=== PATIENT | male | born 1975 | race African-American/Black ===

== ENCOUNTER 2018-12-20 18:16 | Observation (INO) | payer SELFPAY ==
[2018-12-20] MEDS ORDERED: IPRATROPIUM BROM 0.5MG/2.5ML ONE ×3 (18:30→20:51)
[2018-12-20] MEDS ORDERED: ALBUTEROL 2.5 MG/3 ML NEB SOL ONE ×3 (18:30→20:51)
--- OUTSIDE RECORDS SUMMARY | 2018-12-20 18:31 | XMS REPORT | Continuity of Care Document ---
:1975 Author Organization Interface Problems Problem Status Onset Classification Date Comments Source Date Reported ASTHMA Active 01/25/20 [facility] EXACERBATION ON 14 Medical BIPAP Center ASTHMA Active 01/25/20 [facility] 14 Medical Center SOB Active 05/09/20 [facility] 11 Medical Center VATS - Video Active 05/10/20 Problem 04/02/[address] thorascopic Center surgery Asthma<sup>1</de [place] ro[place] Active Problem 04/02/2013 1airlleak [facility] p> in chest Medical tube Center Pain control Active Problem 04/02/2013 [facility] Pneumothorax Active Problem 04/02/2013 [facility] Asthma Resolved Problem 04/02/2013 [facility] ASTHMA NOS W Active [facility] () EXAC [facility] Medications Medication Details Route Status Patient Ordering Order Source Instructions Provider Date predniSONE 50 50 mg, 1 tab, PO Active Valadez 03/31[facility] Tiana mg oral PO, Daily, 4 2012 Medical tablet tab, Center Substitution Allowed, TAB albuterol 90 1 puff, INHALATION Active Rory 03/31[facility] Tiana mcg/inh INHALATION, 2012 Medical inhalation QID, PRN, 1 Center aerosol ea, 6, 6, wheezing, Substitution Allowed, Maintenance albuterol 4.98 mg, 6 mL, [facility] No Geovanni 03/31[facility] Tiana 0.083% Route: Robert ALEX 2012 Medical inhalation Drug form: Active Center solution SOLN, ONCE, Dosing Weight 67.273, kg, Priority: STAT, Start date: 03/31/13 6:52:00, Stop date: 03/31/13 6:52:00 albuterol 7.47 mg, NEB No Geovanni 03/31[facility] Tiana 0.083% Route: Robert ALEX 2012 Medical inhalation Drug form: Active Center solution SOLN, ONCE, Dosing Weight 67.273, kg, Priority: STAT, Start date: 03/31/13 6:24:00, Stop date: 03/31/13 6:24:00 albuterol Substitution Active 03/31[facility] Tiana 0.5% Allowed 2013 Medical inhalation Center solution predniSONE 60 mg, Route: PO No Galarza [facility] PO, Drug form: Longer 2012 Medical TAB, ONCE, Active Center Dosing Weight 67.273, kg, Priority: STAT, Start date: 03/31/13 5:34:00, Stop date: 03/31/13 5:34:00 DuoNeb 9 mL, Route: INHALATION No Galarza 03/31[facility] inhalation INHALATION, Longer 2012 Medical solution Drug Form: Active Center SOLN, Dosing Weight 67.273, kg, ONCE, STAT, Start date: 03/31/13 5:34:00, Stop date: 03/31/13 5:34:00 albuterol 90 1 puff, INHALATION Active [facility] mcg/inh INHALATION, 2010 Medical inhalation QID, PRN, 1 Center aerosol ea, wheezing, Substitution Allowed, Maintenance ipratropium 0.5 mg, 2.5 NEB No [facility] mL, Route: Longer 2010 Medical NEB, Drug Active Center form: SOLN, Q15Min, Priority: STAT, Start date: 05/09/11 13:29:00, Duration: 3 doses or times, Stop date: 05/09/11 13:59:00 albuterol 2.49 mg, 3 mL, NEB No [facility] 05/09[facility] 0.083% Route: NEB, Longer 2010 Medical inhalation Drug form: Active Center solution SOLN, Q15Min, Priority: STAT, Start date: 05/09/11 13:29:00, Duration: 3 doses or times, Stop date: 05/09/11 13:59:00 tuberculin 5 unit, 0.1 INTRADERM No Ponce [facility] purified ml, Route: Longer 2009 Medical protein INTRADERM, Active Center derivative 5 Drug form: tuberculin INJ, ONCE, units/0.1 mL Start date: intradermal 05/07/10 solution 18:30:00, Stop date: 05/07/10 18:30:00 Allergies, Adverse Reactions, Alerts Substance Category Reaction Severity Reaction Status Date Comments Source type Reported Immunizations Immunization Date Given Site Status Last Updated Comments Source tuberculin 05/08/2010 completed [facility] purified protein Medical derivative Center Results Order Results Value Reference Date Interpretation Comments Source Name Range Chest wo Chest wo EXAM: CT CHEST WITHOUT CONTRAST 01/29 [facility] contrast contrast /2013 - Medical CT CT This report was dictated by a Coal Chemist/Fellow. I have personally reviewed the images as Center well as the Resident's interpretation and agree with the findings. DATE: Jan 29, 2014 04:05:00 PM Read by: Jefe Cerna MD Resident: Jefe Cerna MD Dictated Date/time: 01/30/14 08:09 Electronically Signed by: Ramin Robb MD 01/31/14 08:18 FINAL REPORT CLINICAL INDICATION: Coughing COMPARISON: Chest one view 01/26/2014. TECHNIQUE: Volumetric noncontrast CT images of the chest with axial, coronal, and sagittal reconstructions. FINDINGS: MEDIASTINUM: Aorta and great vessels are unremarkable by noncontrast CT. Mild pericardial effusion. The main pulmonary arteries are within normal limits. No lymphadenopathy is identified. LUNGS/PLEURA: No evidence of tracheostenosis. Tracer secretions are present. Diffuse centrilobular and tree in bud opacities are seen predominantly in the bilateral lower lobes. There is mild dependent subsegmental atelectasis. In addition, a few nodules are seen in the right upper lobe measuring up to 4 mm (series 3, image 95 and 115). There is biapical scarring with evidence of prior VATS on the lef t. Trace bilateral pleural effusions are present. BONES/SOFT TISSUES: No acute bony abnormalities identified. There is unchanged S-shaped scoliosis of the thoracolumbar spine. Visualized thyroid is normal. Subcutaneous soft tissues are unremarkable. UPPER ABDOMEN: There is minimal amorphous hyperdensity of the bilateral renal papillary tips. The abdomen is otherwise unremarkable. IMPRESSION: 1. Diffuse centrilobular and tree in bud opacities in the bilateral lower lobes, most consistent with infection and/or aspiration. 2. Minimal amorphous hyperdensity of the bilateral renal papillary tips, which may represent early medullary nephrocalcinosis or stone formation. Chest Chest Chest one view, January 26, 2014 at 2:54 a.m. 01/26 - [facility] 1view 1 - [facility] Center HISTORY: 38-year-old man with abnormal chest sounds. Read by: Jen Montejo MD Dictated Date/time: 01/26/14 08:57 Electronically Signed by: Jen Montejo MD 01/26/14 09:47 FINAL REPORT FINDINGS: Comparison is made to January 24. The cardiomediastinal silhouette is stable. The lungs are clear bilaterally and well expanded. No pleural effusions are identified. There is a reverse S-shaped scoliosis of the thoracic spine. IMPRESSION: The lungs are clear. Chest Chest PORTABLE CHEST 2014-01-24 11:46:00 01/24 - [address] - [facility] Center COMPARISON: 05/09/2011 Read by: Lacho Bond MD Dictated Date/time: 01/24/14 12:44 Electronically Signed by: Lacho Bond 01/24/14 17:25 FINAL REPORT CLINICAL INDICATION: Abnormal chest sounds DISCUSSION: Stable appearance of the heart size and mediastinum. No organized consolidation, pleural effusion or pneumothorax. CONCLUSION: There has been no significant interval change in the radiographic appearance of the chest when compared to prior radiograph. Vital Signs Vital Sign Value Date Comments Source Diastolic (mm Hg) 83 03/31/2013 [facility] Systolic (mm Hg) 142 03/31/2013 [facility] Respitory Rate 15 03/31/2013 [facility] Diastolic (mm Hg) 85 03/31/2013 [facility] Systolic (mm Hg) 139 03/31/2013 [facility] Respitory Rate 14 03/31/2013 [facility] Respitory Rate 14 03/31/2013 [facility] Diastolic (mm Hg) 79 03/31/2013 [facility] Temperature Oral (F) 98.0 F 03/31/2013 [facility] Systolic (mm Hg) 146 03/31/2013 [facility] Heart Rate 109 03/31/2013 [facility] Temperature Oral (F) 98.3 F 03/31/2013 [facility] Height 175.26 cm 03/31/2013 [facility] Weight 67.273 03/31/2013 [facility] Respitory Rate 18.0 05/09/2011 [facility] Heart Rate 78.0 05/09/2011 [facility] Diastolic (mm Hg) 91.0 05/09/2011 [facility] Systolic (mm Hg) 144.0 05/09/2011 [facility] Temperature Oral (F) 97.0 F 05/09/2011 [facility] Respitory Rate 16.0 05/09/2011 [facility] Heart Rate 72.0 05/09/2011 [facility] Diastolic (mm Hg) 93.0 05/09/2011 [facility] Temperature Oral (F) 98.0 F 05/09/2011 [facility] Systolic (mm Hg) 154.0 05/09/2011 [facility] Respitory Rate 20.0 05/09/2011 [facility] Weight 77.273 05/09/2011 [facility] Diastolic (mm Hg) 100.0 05/09/2011 [facility] Systolic (mm Hg) 178.0 05/09/2011 [facility] Heart Rate 103.0 05/09/2011 [facility] Encounters Location Location Encounter Encounter Reason Attending ADM DC Status Source Details Type Number For Provider Date Date Visit [facility] Emergency [id number] DAPHNE RODRIGUEZ 05/09 05/09 Active [facility] /2010 [facility] Emergency [id number] ALTAGRACIA 03/31 03/31 Active [facility] ANNE /2012 [facility] Outpatient [id number] ASTHMA ROLF Cancel [facility] Procedures Procedure Code Date Perfomer Comments Source
--- OUTSIDE RECORDS SUMMARY | 2018-12-20 18:32 | XMS REPORT | CCD ---
:1975 Author Organization [facility] Care Team Providers Name Role Phone Simón Gutiérrez Consulting Provider Unavailable Arti Linares Consulting Provider [phone] Zamzam Sanchez Consulting Provider Jen Kim Consulting Provider Unavailable Santy Mcconnell Consulting Provider [employer], Login Consulting Provider Unavailable Alexy Skelton Consulting Provider Raquel Dias Consulting Provider Unavailable Nivia Dhillon Consulting Provider Unavailable Charito Thompson Consulting Provider Lenka Oakes Consulting Provider Unavailable Macey Davenport Consulting Provider Unavailable SYSTEM, SYSTEM Consulting Provider Unavailable Umu Barba Consulting Provider Unavailable Najma Ponce Consulting Provider Bety Wiggins Consulting Provider Unavailable Tu Tyler Consulting Provider [phone] Jose David Ojeda Consulting Provider Allergies, Adverse Reactions, Alerts Substance Reaction Status NKDA ?? Active Problem List Condition Effective Dates Status Asthma1 ?? Active Pain control ?? Active Pneumothorax ?? Active VATS - Video assisted thorascopic surgery 05/10/2010 Active 1airlleak in chest tube Medications Medication Instructions Start Date End Date Status tuberculin purified 5 unit, 0.1 ml, Route: 05/07/2010 05/07/2010 Completed protein derivative 5 INTRADERM, Drug form: INJ, tuberculin units/0.1 mL ONCE, Start date: 05/07/10 intradermal solution 18:30:00, Stop date: 05/07/10 18:30:00 albuterol 90 mcg/inh 1 puff, INHALATION, QID, 05/09/2011 ?? Ordered inhalation aerosol PRN, 1 ea, wheezing, Substitution Allowed, Maintenance ipratropium 0.5 mg, 2.5 mL, Route: [facility], 05/09/2011 05/09/2011 Completed Drug form: SOLN, Q15Min, Priority: STAT, Start date: 05/09/11 13:29:00, Duration: 3 doses or times, Stop date: 05/09/11 13:59:00 albuterol 0.083% 2.49 mg, 3 mL, Route: [facility], 05/09/2011 05/09/2011 Completed inhalation solution Drug form: SOLN, Q15Min, Priority: STAT, Start date: 05/09/11 13:29:00, Duration: 3 doses or times, Stop date: 05/09/11 13:59:00 Immunizations Vaccine Date Status tuberculin purified protein derivative 05/07/2010 Auth (Verified) Vital Signs Most recent to oldest 1 2 3 [Reference Range]: Temperature Oral 97.0 DegF 98.0 DegF ?? [96.4-99.1 DegF] (05/09/2011 15:26:00) ?? (05/09/2011 13:56:00) ?? Systolic Blood Pressure 144 mmHg 154 mmHg 178 mmHg [90-140 mmHg] *HI* *HI* *HI* (05/09/2011 15:26:00) ?? (05/09/2011 13:56:00) ?? (05/09/2011 13:17:00) ?? Diastolic Blood Pressure 91 mmHg 93 mmHg 100 mmHg [60-90 mmHg] *HI* *HI* *HI* (05/09/2011 15:26:00) ?? (05/09/2011 13:56:00) ?? (05/09/2011 13:17:00) ?? Respiratory Rate [14-20 18 BRMIN 16 BRMIN 20 BRMIN BRMIN] (05/09/2011 15:26:00) ?? (05/09/2011 13:56:00) ?? (05/09/2011 13:35: 00) ?? Peripheral Pulse Rate 78 bpm 72 bpm 103 bpm [60-100 bpm] (05/09/2011 15:26:00) ?? (05/09/2011 13:56:00) ?? *HI* (05/09/2011 13:17:00) ?? Weight 77.273 kg ? (05/09/2011 13:17:00) ??
--- OUTSIDE RECORDS SUMMARY | 2018-12-20 18:32 | XMS REPORT ---
:1975 [facility] [address] [place] [address] Care Team Providers Name Role Phone Unavailable Unavailable Unavailable Problems This patient has no known problems. Allergies, Adverse Reactions, Alerts This patient has no known allergies or adverse reactions. Medications This patient has no known medications.
--- OUTSIDE RECORDS SUMMARY | 2018-12-20 18:32 | XMS REPORT | CCD ---
:[address] [facility] Care Team Providers Name Role Phone Johnny Madden Consulting Provider Allergies, Adverse Reactions, Alerts Substance Reaction Status NKDA Active Problem List Condition Effective Dates Status Asthma1 Active Asthma Resolved Pain control Active Pneumothorax Active Pneumothorax Resolved VATS - Video assisted thorascopic surgery 05/10/2010 Active 1airlleak in chest tube Medications Medication Instructions Start Date End Date Status tuberculin purified 5 unit, 0.1 ml, Route: 05/07/2010 05/07/2010 Completed protein derivative 5 INTRADERM, Drug form: INJ, tuberculin units/0.1 mL ONCE, Start date: 05/07/10 intradermal solution 18:30:00, Stop date: 05/07/10 18:30:00 predniSONE 50 mg oral 50 mg, 1 tab, PO, Daily, 4 03/31/2013 04/04/2013 Ordered tablet tab, Substitution Allowed, TAB albuterol 90 mcg/inh 1 puff, INHALATION, QID, 03/31/2013 Ordered inhalation aerosol PRN, 1 ea, 6, 6, wheezing, Substitution Allowed, Maintenance albuterol 0.5% inhalation Substitution Allowed 03/31/2013 Ordered solution predniSONE 60 mg, Route: PO, Drug 03/31/2013 03/31/2013 Completed form: TAB, ONCE, Dosing Weight 67.273, kg, Priority: STAT, Start date: 03/31/13 5:34:00, Stop date: 03/31/13 5:34:00 DuoNeb inhalation solution 9 mL, Route: INHALATION, 03/31/2013 03/31/2013 Completed Drug Form: SOLN, Dosing Weight 67.273, kg, ONCE, STAT, Start date: 03/31/13 5:34:00, Stop date: 03/31/13 5:34:00 albuterol 0.083% 4.98 mg, 6 mL, Route: NEB, 03/31/2013 03/31/2013 Completed inhalation solution Drug form: SOLN, ONCE, Dosing Weight 67.273, kg, Priority: STAT, Start date: 03/31/13 6:52:00, Stop date: 03/31/13 6:52:00 albuterol 0.083% 7.47 mg, Route: NEB, Drug 03/31/2013 03/31/2013 Completed inhalation solution form: SOLN, ONCE, Dosing Weight 67.273, kg, Priority: STAT, Start date: 03/31/13 6:24:00, Stop date: 03/31/13 6:24:00 Immunizations Vaccine Date Status tuberculin purified protein derivative 05/07/2010 Auth (Verified) Vital Signs Most recent to oldest 1 2 3 [Reference Range]: Height 175.26 cm (03/31/2013 05:19:00) Temperature Oral 98.0 DegF 98.3 DegF [96.4-99.1 DegF] (03/31/2013 06:28:00) (03/31/2013 05:19:00) Systolic Blood Pressure 142 mmHg 139 mmHg 146 mmHg [90-140 mmHg] *HI* (03/31/2013 07:15:00) *HI* (03/31/2013 08:53:00) (03/31/2013 06:28:00) Diastolic Blood Pressure 83 mmHg 85 mmHg 79 mmHg [60-90 mmHg] (03/31/2013 08:53:00) (03/31/2013 07:15:00) (03/31/2013 06:28: 00) Respiratory Rate [14-20 15 BRMIN 14 BRMIN 14 BRMIN BRMIN] (03/31/2013 08:53:00) (03/31/2013 07:15:00) (03/31/2013 06:28:00) Peripheral Pulse Rate 109 bpm [60-100 bpm] *HI* (03/31/2013 05:19:00) Weight 67.273 kg (03/31/2013 05:19:00)
--- OUTSIDE RECORDS SUMMARY | 2018-12-20 18:32 | XMS REPORT | Summary of Care ---
:1975 Author Name Paz Gutiérrez Address Unavailable Unavailable , Care Team Providers Name Role Phone SIOBHAN JOHNSTON Unavailable Unavailable YAQUELIN SAUCEDO, RENEE Nugent Unavailable Unavailable RODOLFO SAUCEDO, ZHANNA Unavailable Unavailable RENEE JAMISON M.D. Unavailable Unavailable SIOBHAN CHÁVEZ Unavailable Unavailable Unavailable Unavailable Unavailable Functional Status Name Dates Details Functional status health issues are not documented Status: Name Dates Details Cognitive status health issues are not documented Status: Problems Name Dates Details Spontaneous Pneumothorax (512.8) Status: Active Fever (780.60, R50.9) Status: Active Insomnia (780.52, G47.00) Status: Active Lumbago (724.2, M54.5) Status: Active Acute pharyngitis due to other specified organisms (462, J02.8) Status: Active Fatigue (780.79, R53.83) Status: Active Depressive disorder (311, F32.9) Status: Active Visit for preventive health examination (V70.0, Z00.00) Status: Active Trichomonas infection (131.9, A59.9) Status: Active 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, 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) Status: Active Anemia (285.9, D64.9) Status: Active Encounter for drug screening (V72.85, Z02.83) Status: Active Chest pain (786.50, R07.9) Status: Active Asthma, moderate persistent (493.90, J45.40) Status: Active Acute URI (465.9, J06.9) Status: Active Adjustment reaction with anxiety and depression (309.28, F43.23) Status: Active Routine history and physical examination of adult (V70.0, Z00.00) Status: Active Bronchospasm (519.11, J98.01) Status: Active Allergic rhinitis (477.9, J30.9) Status: Active Asthma (493.90, J45.909) Status: Active Mild intermittent asthma without complication (493.90, J45.20) Status: Active Pruritic rash (698.2, L28.2) Status: Active Abnormal EKG (794.31, R94.31) Status: Active Mitral regurgitation (424.0, I34.0) Status: Active Elevated glucose (790.29, R73.09) Status: Active Cough (786.2, R05) Status: Active Wheezing (786.07, R06.2) Status: Active Moderate persistent asthma with exacerbation (493.92, J45.41) Status: Active Medications Name Dates Details ProAir HFA 108 (90 Base) MCG/ACT Inhalation Aerosol Solution INHALE 1 TO 2 PUFFS BY MOUTH EVERY 4 TO 6 HOURS NEEDED Quantity: 8.5 Refills: 0 BERMUDEZ P.A., LIEN Start : 20-Oct-2018 Active Montelukast Sodium 10 MG Oral Tablet TAKE 1 TABLET DAILY DIRECTED. Quantity: 30 Refills: 1 BERMUDEZ P.A., LIEN Start : 12-Jun-2015 Active Symbicort 160-4.5 MCG/ACT Inhalation Aerosol INHALE 2 PUFFS TWICE DAILY. RINSE MOUTH AFTER USE. Quantity: 1 Refills: 2 BERMUDEZ P.A., LIEN Start : 13-Feb-2014 Active 6 GM Inhaler predniSONE 20 MG Oral Tablet Take 2 tablets for 4 days, then 1 tablet for 3 days Quantity: 11 Refills: 0 BERMUDEZ P.A., LIEN Start : 08-Oct-2018 Active Allergies and Adverse Reactions Name Dates Details No Known Drug Allergies (Allergy) Status: Active No Known Drug Allergies (Allergy) Status: Active Past Medical History Name Dates Details History of pneumothorax (V12.69, Z87.09) Status: Resolved Procedures Procedure Dates Details Complete PFTs w/DLCO and Lung Volumes Date: 08-Oct-2018 History of Thoracoscopy (Therapeutic) W/ Completed Resection-Plication Of Bullae Immunization Name Dates Details Td on: 2004 Tdap (Adacel) on: 13-Feb-2015 Lot #: [id number] Family History Name Dates Details Family history of essential hypertension (V17.49, Z82.49) Status: Active Name Dates Details Family history of essential hypertension (V17.49, Z82.49) Status: Active Social History Name Dates Details - Status: Name Dates Details Former smoker Never smoker Vital Signs Date Test Result Details No Known Vitals to report Results Date Description Value Details Results not documented Plan of Care Name Dates Details Planned Observations Planned Goals not documented Planned Encounters Pulmonary Referral Appointment; SIOBHAN BERMUDEZ P.A. On: 05-Jan-2019 8:20 Appointment; MARISSA DELGADO M.D. On: 27-Jan-2019 9:30 Instructions Name Dates Details Instructions not documented Encounters Appointment; ZHANNA REYNOLDS NP On: 12-Feb-2017 13:40 Encounter Diagnosis: Problem not documented Appointment; HZANNA REYNOLDS NP On: 01-Dec-2017 12:00 Encounter Diagnosis: Problem not documented Appointment; GIUSEPPE PRAKASH P.A. On: 11-Feb-2018 10:20 Encounter Diagnosis: Problem not documented Appointment; GIUSEPPE PRAKASH P.A. On: 10-Jun-2018 7:00 Encounter Diagnosis: Problem not documented Appointment; SIOBHAN BERMUDEZ P.A. On: 08-Oct-2018 14:00 Encounter Diagnosis: Problem not documented
[2018-12-20 19:36] LABS: Absolute Lymphocytes (CBC) 1.6 K/uL (0.7-4.9); Absolute Monocytes 0.4 K/uL (0.1-1.3); Absolute Neutrophil 5.4 K/uL (1.8-8.0); Basophils % 0.7 % (0-1.3); Eosinophils % 2.3 % (0-4.4); Hematocrit 40.6 % (39.6-49.0); MPV 8.8 fL (7.6-11.3); Monocytes % 5.1 % (3.3-12.3); RBC Red Blood Cell Count 4.16 M/uL (4.33-5.43)
--- NOTE | 2018-12-20 19:42 | RAD REPORT ---
EXAM DESCRIPTION: RAD - Chest Single View - 12/20/2018 7:10 pm CLINICAL HISTORY: Shortness of breath, asthma COMPARISON: July 2014 TECHNIQUE: AP portable chest image was obtained 1905 hours . FINDINGS: Lungs are hyperexpanded with mildly prominent baseline interstitial pattern. No focal infi ltrate, mass or failure finding. Heart and vasculature are normal. No measurable pleural effusion and no pneumothorax. No acute bony abnormality seen. No acute aortic findings suspected. IMPRESSION: No acute cardiopulmonary process. No significant change from comparison imaging.
[2018-12-20 19:58] LABS: BUN Blood Urea Nitrogen 17 mg/dL (7-18); Bicarbonate 30 mmol/L (21-32); Glucose Level 133 mg/dL (74-106); Magnesium 2.9 mg/dL (1.8-2.4); NT PRO-BNP 12 pg/mL (<125); Potassium 3.6 mmol/L (3.5-5.1); Sodium Level 142 mmol/L (136-145); Troponin (Emerg Dept Use Only) < 0.02 ng/mL (0.0-0.045)
--- NOTE | 2018-12-20 20:49 | EDPHYS ---
Physician Documentation [facility] Name: Gumaro Brand Age: 43 yrs Sex: Male : 1975 Arrival Date: 12/20/2018 Time: 18:19 Bed 4 Private MD: ED Physician Michael Porter HPI: 12/20 20:48 This 43 yrs old Black Male presents to ER via EMS with complaints of Respiratory gs Distress. 20:48 The patient has shortness of breath at rest. Onset: The symptoms/episode began/occurred gs acutely, just prior to arrival. Duration: The symptoms are continuous. The patient's shortness of breath is aggravated by coughing. Associated signs and symptoms: Pertinent positives: chest pain, non-productive cough, productive cough, Pertinent negatives: fever. Severity of symptoms: At their worst the symptoms were incapacitating in the emergency department the symptoms are unchanged. The patient has experienced similar episodes in the past, several times. It is unknown whether or not the patient has recently seen a physician. Historical: - Allergies: 18:27 No Known Allergies; bp - PMHx: 18:27 Asthma; bp - Immunization history:: Adult Immunizations up to date. - Social history:: Smoking status: Patient/guardian denies using tobacco. - Ebola Screening: : No symptoms or risks identified at this time. ROS: 20:48 All other systems are negative. gs Exam: 20:48 Head/Face: Normocephalic, atraumatic. Eyes: Pupils equal round and reactive to light, gs extra-ocular motions intact. Lids and lashes normal. Conjunctiva and sclera are non-icteric and not injected. Cornea within normal limits. Periorbital areas with no swelling, redness, or edema. ENT: Nares patent. No nasal discharge, no septal abnormalities noted. Tympanic membranes are normal and external auditory canals are clear. Oropharynx with no redness, swelling, or masses, exudates, or evidence of obstruction, uvula midline. Mucous membranes moist. Neck: Trachea midline, no thyromegaly or masses palpated, and no cervical lymphadenopathy. Supple, full range of motion without nuchal rigidity, or vertebral point tenderness. No Meningismus. Chest/axilla: Normal chest wall appearance and motion. Nontender with no deformity. No lesions are appreciated. 20:48 Abdomen/GI: Soft, non-tender, with normal bowel sounds. No distension or tympany. No guarding or rebound. No evidence of tenderness throughout. Back: No spinal tenderness. No costovertebral tenderness. Full range of motion. Skin: Warm, dry with normal turgor. Normal color with no rashes, no lesions, and no evidence of cellulitis. MS/ Extremity: Pulses equal, no cyanosis. Neurovascular intact. Full, normal range of motion. Neuro: Awake and alert, GCS 15, oriented to person, place, time, and situation. Cranial nerves II-XII grossly intact. Motor strength 5/5 in all extremities. Sensory grossly intact. Cerebellar exam normal. Normal gait. 20:48 Constitutional: The patient appears alert, awake, in obvious distress, severely distressed. 20:48 Cardiovascular: Rate: tachycardic, Rhythm: regular, Pulses: no pulse deficits are appreciated. 20:48 Respiratory: severe repiratory distress is noted, Respirations: accessory muscle usage, prolonged exhalation, tachypnea, Breath sounds: decreased breath sounds, that are severe, are scattered, wheezing: expiratory Vital Signs: 18:27 BP 152 / 103; Pulse 116; Resp 20; Temp 97.8; Pulse Ox 98% on 15% BiPAP; Weight 68.04 kg;bp 19:26 BP 128 / 85; Pulse 85; Resp 20; Pulse Ox 98% on 100% BiPAP; Pain 0/10; lp1 20:00 BP 124 / 95; Pulse 81; Resp 19; Pulse Ox 98% on 45% BiPAP; lp1 20:30 BP 101 / 87; Pulse 94; Resp 14; Pulse Ox 100% on 45% BiPAP; Pain 0/10; lp1 21:28 BP 122 / 83; Pulse 78; Resp 20; Temp 97.6(TE); Pulse Ox 100% on 45% BiPAP; Pain 0/10; lp1 22:30 BP 134 / 89; Pulse 94; Resp 20; Pulse Ox 100% on 45% BiPAP; lp1 20:00 BiPAP settings: 12/6, 45 % O2, Rate 16 lp1 MDM: 18:30 Patient medically screened. gs 20:48 Differential diagnosis: asthma, Bronchitis Chronic Obstructive Pulmonary Disease gs Myocardial Infarction pneumonia. Data reviewed: vital signs, nurses notes, lab test result(s), radiologic studies. Counseling: I had a detailed discussion with the patient and/or guardian regarding: the historical points, exam findings, and any diagnostic results supporting the discharge/admit diagnosis, the need for further work-up and treatment in the hospital. Response to treatment: the patient's symptoms have markedly improved after treatment, and as a result, I will admit patient. 12/20 18:51 Order name: Basic Metabolic Panel; Complete Time: 20:04 12/20 18:51 Order name: CBC with Diff; Complete Time: 20: 12/20 18:51 Order name: Magnesium; Complete Time: 20: 12/20 18:51 Order name: NT PRO-BNP; Complete Time: 20:04 12/20 18:51 Order name: Troponin (emerg Dept Use Only); Complete Time: 20: 12/20 21:09 Order name: CBC with Automated Diff [facility] 12/20 21:09 Order name: CBC with Automated Diff [facility] 12/20 21:09 Order name: Comprehensive Metabolic Panel [facility] 12/20 21:09 Order name: Comprehensive Metabolic Panel [facility] 12/20 21:09 Order name: Magnesium [facility] 12/20 21:09 Order name: Magnesium [facility] 12/20 21:09 Order name: Phosphorus [facility] 12/20 21:09 Order name: Phosphorus [facility] 12/20 21:10 Order name: Urinalysis [facility] 12/20 18:33 Order name: BIPAP 12/20 18:51 Order name: XRAY Chest (1 view); Complete Time: 20:04 12/20 18:51 Order name: EKG; Complete Time: 18:52 12/20 18:51 Order name: Cardiac monitoring; Complete Time: 19:04 12/20 18:51 Order name: EKG - Nurse/Tech; Complete Time: 19:04 12/20 18:51 Order name: IV Saline Lock; Complete Time: 19:05 12/20 18:51 Order name: Labs collected and sent; Complete Time: 19:05 12/20 18:51 Order name: O2 Per Protocol; Complete Time: 19:05 12/20 18:51 Order name: O2 Sat Monitoring; Complete Time: 19:05 12/20 21:09 Order name: CONS Physician Consult [facility] 12/20 21:09 Order name: Heart Healthy EDMS Administered Medications: 18:27 Drug: Albuterol - atroVENT (3:1) (2.5 mg - 0.5 mg) 3 ml Route: Nebulizer; bp 18:27 Drug: NS 0.9% 1000 ml Route: IV; Rate: 125 ml/hr; Site: right antecubital; bp 18:40 Drug: Albuterol - atroVENT (3:1) (2.5 mg - 0.5 mg) 3 ml Route: Nebulizer; bp 19:10 Follow up: Response: No adverse reaction; Marked relief of symptoms lp1 20:48 Drug: Albuterol - atroVENT (3:1) (2.5 mg - 0.5 mg) 3 ml Route: Nebulizer; lp1 21:30 Follow up: Response: No adverse reaction lp1 Disposition: 20:43 Critical Care:. gs Disposition: 12/20/18 20:48 Hospitalization ordered by Ivone Ross for Inpatient Admission. Preliminary diagnosis are Acute respiratory failure, Acute respiratory failure with hypercapnia. - Bed requested for Telemetry/MedSurg (Inpatient). - Status is Inpatient Admission. lp1 - Condition is Stable. - Problem is an acute exacerbation. - Symptoms have improved. UTI on Admission? No Critical care time excluding procedures: 20:43 Critical care time: Bedside Care: 15 minutes, Consultation: 10 minutes, Family gs Intervention: 5 minutes. Total time: 30 minutes Signatures: Dispatcher [employer] EDMI Nivia Meraz RN RN 1 Christi Herring RN RN Michael Porter MD MD Daniel Arenas RN RN bp Corrections: (The following items were deleted from the chart) 21:15 20:48 Hospitalization Ordered by Ivone Ross MD for Inpatient Admission. Preliminary cg diagnosis is Acute respiratory failure; Acute respiratory failure with hypercapnia. Bed requested for Telemetry/MedSurg (Inpatient). Status is Inpatient Admission. Condition is Stable. Problem is an acute exacerbation. Symptoms have improved. UTI on Admission? No. gs 23:00 21:15 12/20/2018 20:48 Hospitalization Ordered by Ivone Ross MD for Inpatient lp1 Admission. Preliminary diagnosis is Acute respiratory failure; Acute respiratory failure with hypercapnia. Bed requested for Telemetry/MedSurg (Inpatient). Status is Inpatient Admission. Condition is Stable. Problem is an acute exacerbation. Symptoms have improved. UTI on Admission? No. cg
--- NOTE | 2018-12-20 20:49 | ER ---
Nurse's Notes [facility] Name: Gumaro Brand Age: 43 yrs Sex: Male : 1975 Arrival Date: 12/20/2018 Time: 18:19 Bed 4 Private MD: Diagnosis: Acute respiratory failure;Acute respiratory failure with hypercapnia Presentation: 12/20 18:19 Acuity: DENNIS 1 ss 18:24 Presenting complaint: EMS states: ASTHMA ATTACK. Transition of care: patient was not bp received from another setting of care. Onset of symptoms was December 20, 2018 at 17:45. Risk Assessment: Do you want to hurt yourself or someone else? Patient reports no desire to harm self or others. Initial Sepsis Screen: Does the patient meet any 2 criteria? HR > 90 bpm. No. Patient's initial sepsis screen is negative. Does the patient have a suspected source of infection? No. Patient's initial sepsis screen is negative. Care prior to arrival: Medication(s) given: Albuterol Neb x 2, Atrovent Neb MAGNESIUM 2G, SOLU-MEDROL 125MG, EPI 0.3MG IM IV initiated. 20 GA, in the right antecubital area, Med neb given. Oxygen administered. via CPAP or BiPAP. 18:24 Method Of Arrival: EMS: [facility] bp Triage Assessment: 18:27 General: Appears distressed, uncomfortable, slender, Behavior is cooperative, bp appropriate for age, agitated, anxious. Pain: Denies pain. EENT: No deficits noted. Neuro: Level of Consciousness is awake, alert, obeys commands, Oriented to person, place, time, situation, Appropriate for age. Cardiovascular: Rhythm is sinus tachycardia. Respiratory: Reports shortness of breath air hunger Breath sounds are diminished Breath sounds with wheezes Onset: The symptoms/episode began/occurred just prior to arrival, the patient has severe shortness of breath. GI: No signs and/or symptoms were reported involving the gastrointestinal system. : No signs and/or symptoms were reported regarding the genitourinary system. Derm: No deficits noted. Musculoskeletal: Circulation, motion, and sensation intact. Range of motion: intact in all extremities. Historical: - Allergies: 18:27 No Known Allergies; bp - PMHx: 18:27 Asthma; bp - Immunization history:: Adult Immunizations up to date. - Social history:: Smoking status: Patient/guardian denies using tobacco. - Ebola Screening: : No symptoms or risks identified at this time. Screenin:31 Abuse screen: Denies threats or abuse. Denies injuries from another. Nutritional bp screening: No deficits noted. Tuberculosis screening: No symptoms or risk factors identified. Fall Risk None identified. Assessment: 18:30 General: SEE TRIAGE NOTE. Cardiovascular: Rhythm is sinus tachycardia. bp 19:25 General: Appears comfortable, Behavior is calm. Pain: Denies pain. Neuro: Level of lp1 Consciousness is awake, alert, obeys commands, Oriented to person, place, time, situation. Cardiovascular: Patient's skin is warm and dry. Rhythm is sinus rhythm. Respiratory: Airway is patent Trachea midline Respiratory effort is even, labored, Respiratory pattern is symmetrical, Breath sounds are diminished bilaterally. Onset: The symptoms/episode began/occurred suddenly, the patient has moderate shortness of breath. GI: Abdomen is flat. : No signs and/or symptoms were reported regarding the genitourinary system. EENT: No signs and/or symptoms were reported regarding the EENT system. Derm: Skin is intact, Skin is dry, Skin is normal. Musculoskeletal: Circulation, motion, and sensation intact. 20:30 Reassessment: Patient appears in no apparent distress at this time. No changes from lp1 previously documented assessment. Patient and/or family updated on plan of care and expected duration. Pain level reassessed. 21:30 Reassessment: Patient appears in no apparent distress at this time. Patient states lp1 feeling better. Patient states symptoms have improved. Respiratory: Respiratory effort is even, unlabored, BiPAP remains in place. Derm: Skin is intact, Skin is dry, Skin is normal. Vital Signs: 18:27 BP 152 / 103; Pulse 116; Resp 20; Temp 97.8; Pulse Ox 98% on 15% BiPAP; Weight 68.04 kg;bp 19:26 BP 128 / 85; Pulse 85; Resp 20; Pulse Ox 98% on 100% BiPAP; Pain 0/10; lp1 20:00 BP 124 / 95; Pulse 81; Resp 19; Pulse Ox 98% on 45% BiPAP; lp1 20:30 BP 101 / 87; Pulse 94; Resp 14; Pulse Ox 100% on 45% BiPAP; Pain 0/10; lp1 21:28 BP 122 / 83; Pulse 78; Resp 20; Temp 97.6(TE); Pulse Ox 100% on 45% BiPAP; Pain 0/10; lp1 22:30 BP 134 / 89; Pulse 94; Resp 20; Pulse Ox 100% on 45% BiPAP; lp1 20:00 BiPAP settings: 12/6, 45 % O2, Rate 16 lp1 ED Course: 18:19 Patient arrived in ED. ss 18:19 Triage completed. ss 18:24 Daniel Arenas, DEDRICK is Primary Nurse. bp 18:27 Arm band placed on. bp 18:30 Michael Porter MD is Attending Physician. gs 18:31 Patient has correct armband on for positive identification. Bed in low position. Call bp light in reach. Side rails up X2. Adult w/ patient. 18:31 Maintain EMS IV. Dressing intact. Good blood return noted. Site clean \T\ dry. Gauge \T\ bp site: 20 GAUGE R AC. 19:10 XRAY Chest (1 view) In Process Unspecified. EDMS 20:43 Ivone Ross MD is Hospitalizing Provider. gs 21:28 No provider procedures requiring assistance completed. Patient admitted, IV remains in lp1 place. Administered Medications: 18:27 Drug: Albuterol - atroVENT (3:1) (2.5 mg - 0.5 mg) 3 ml Route: Nebulizer; bp 18:27 Drug: NS 0.9% 1000 ml Route: IV; Rate: 125 ml/hr; Site: right antecubital; bp 18:40 Drug: Albuterol - atroVENT (3:1) (2.5 mg - 0.5 mg) 3 ml Route: Nebulizer; bp 19:10 Follow up: Response: No adverse reaction; Marked relief of symptoms lp1 20:48 Drug: Albuterol - atroVENT (3:1) (2.5 mg - 0.5 mg) 3 ml Route: Nebulizer; lp1 21:30 Follow up: Response: No adverse reaction lp1 Outcome: 20:48 Decision to Hospitalize by Provider. gs 21:29 Condition: stable lp1 21:29 Instructed on the need for admit. 22:05 Admitted to Tele accompanied by tech, via stretcher, room 416, with chart, Report lp1 called to DEDRICK Duvall 22:45 Patient left the ED. lp1 Signatures: Dispatcher [employer] EDMS Brittni Richards RN RN Nivia Meraz RN RN lp1 Michael Porter MD MD gs Peltier, Brian, RN RN bp Corrections: (The following items were deleted from the chart) 20:01 19:26 BP 128 / 85; Pulse 85bpm; Resp 20bpm; Pulse Ox 98% 02 15% BiPAP; Pain 0/10; lp1 lp1 20:06 20:00 BP 124 / 95; Pulse 81bpm; Resp 19bpm; Pulse Ox 45% BiPAP; BiPAP settings: 6, lp1 45 % O2, Rate 16; lp1 23:01 23:00 Patient left the ED. lp1 lp1
[2018-12-20] MEDS ORDERED: AZITHROMYCIN IV 500 MG in NA CHLORIDE 0.9% 250 ML IVPB ONE (21:02)
[2018-12-20] MEDS ORDERED: ALPRAZOLAM 0.25 MG TABLET PO PRN (21:02)
[2018-12-20] MEDS ORDERED: ONDANSETRON 4 MG/2 ML VIAL IV PRN (21:02)
[2018-12-20] MEDS ORDERED: LORATADINE 10 MG TAB PO PRN (21:02)
[2018-12-20] MEDS ORDERED: ACETAMINOPHEN 500 MG TAB PO PRN (21:02)
[2018-12-20] MEDS ORDERED: NA CHLORIDE 0.9% 1,000 ML IV SCH (22:00)
[2018-12-20] MEDS: METHYLPREDNISOLONE 40 MG INJ IV SCH (23:55)
[2018-12-21] MEDS ORDERED: AZITHROMYCIN 500 MG INJ IVPB ONE (01:25)
[2018-12-21] MEDS ORDERED: NA CHLORIDE 0.9% 0 ML ONE (01:30)
[2018-12-21] MEDS ORDERED: NA CHLORIDE 0.9% 250 ML ONE (01:33)
[2018-12-21] MEDS: IPRATROPIUM BROM 0.5MG/2.5ML NEB SCH ×2 (02:00→08:32)
[2018-12-21] MEDS: ALBUTEROL 2.5 MG/3 ML NEB SOL NEB SCH ×2 (02:00→08:32)
[2018-12-21] MEDS: METHYLPREDNISOLONE 40 MG INJ IV SCH (05:21)
[2018-12-21 05:54] LABS: Absolute Lymphocytes (CBC) 0.8 K/uL (0.7-4.9); Absolute Monocytes 0.1 K/uL (0.1-1.3); Basophils % 0.1 % (0-1.3); Hematocrit 38.8 % (39.6-49.0); Lymphocytes % 14.2 % (15.3-44.8); MPV 9.1 fL (7.6-11.3); Monocytes % 1.5 % (3.3-12.3); RBC Red Blood Cell Count 4.02 M/uL (4.33-5.43)
[2018-12-21 05:56] LABS: Albumin 3.6 g/dL (3.4-5.0); Bilirubin Total 0.4 mg/dL (0.2-1.0); Magnesium 2.3 mg/dL (1.8-2.4); Phosphorus 1.3 mg/dL (2.5-4.9); Potassium 4.4 mmol/L (3.5-5.1)
--- NOTE | 2018-12-21 06:06 | EKG ---
Test Date: 2018-12-20 Test Time: 19:00:54 It Account Manager: ELOISA MEASUREMENT RESULTS: Intervals: Rate: 93 [place]: 138 QRSD: 90 QT: 392 QTc: 487 [place]: P: 87 [place]: 138 QRS: 87 T: 68 INTERPRETIVE STATEMENTS: Normal sinus rhythm Prolonged QT Abnormal ECG Compared to ECG 08/14/2014 16:54:12 Prolonged QT interval now present Electronically Signed On 12-21-18 06:05:37 CDT by Bhanu Rausch
--- NOTE | 2018-12-21 08:35 | P.HP ---
Certification for Inpatient Patient admitted to: Observation With expected LOS: <2 Midnights Patient will require the following post-hospital care: None Practitioner: I am a practitioner with admitting privileges, knowledge of patient current condition, hospital course, and medical plan of care. Services: Services provided to patient in accordance with Admission requirements found in Title 42 Section 412.3 of the Code of Federal Regulations Patient History Date of Service: 12/20/18 Reason for admission: asthma exacerbation History of Present Illness: Patient is a 43-year-old gentleman who came into the hospital with shortness of breath. Patient works with [employer], and he got short of breath while he was at work. He gave himself multiple breathing treatments with no success. EMS paramedics gave him IV Solu-Medrol, IV epi, IV magnesium, and 3 nebs back to back. He was brought into the emergency room and he was still very short of breath so he was placed on BiPAP. Gradually his symptoms started improving. He has had 3 hospitalizations this year with his asthma exacerbation. He normally goes through at least 1 inhaler every month and he uses Symbicort but is not that compliant with this. He is clinically improving so he will go to the general medical floor. We will continue with neb treatments along with IV steroids and we will check a peak flow in a.m.. He will benefit from outpatient pulmonary or sole assessor follow-up. Allergies No Known Drug Allergies Allergy (Verified 12/21/18 01:21) Unknown Home Medications: Albuterol Sulfate [Albuterol Sulfate Hfa] 1 inh IN SEECOM PRN 12/21/18 Budesonide/Formoterol Fumarate [Symbicort 80-4.5 Mcg Inhaler] 1 puff IN DAILY - Past Medical/Surgical History Has patient received pneumonia vaccine in the past: Yes Diabetic: No -: asthma Past Surgical History: Patient denies surgical history - Family History Mother History Unknown: Yes Father History Unknown: Yes - Social History Smoking Status: Never smoker Alcohol use: No CD- Drugs: No Caffeine use: No Place of Residence: Home Review of Systems 10-point ROS is otherwise unremarkable Physical Examination - Vital Signs Temperature: 98.2 F Blood Pressure: 127/59 Pulse: 89 Respirations: 18 Pulse Ox (%): 97 - Physical Exam General: Alert, In no apparent distress, Oriented x3 HEENT: Atraumatic, PERRLA, Mucous membr. moist/pink, EOMI, Sclerae nonicteric Neck: Supple, 2+ carotid pulse no bruit, No LAD, Without JVD or thyroid abnormality Respiratory: Diminished, Expiratory wheezes, Inspiratory wheezes Cardiovascular: Regular rate/rhythm, Normal S1 S2, No murmurs Gastrointestinal: Normal bowel sounds, Soft and benign, Non-distended, No tenderness Musculoskeletal: No clubbing, No swelling, No tenderness Integumentary: No rashes Neurological: Normal gait, Normal speech, Normal strength at 5/5 x4 extr, Normal tone, Sensation intact, Cranial nerves 3-12 intact, Normal affect Lymphatics: No axilla or inguinal lymphadenopathy - Studies Laboratory Data (last 24 hrs) 12/20/18 19:22: WBC 7.6, Hgb 13.7, Hct 40.6, Plt Count 211 12/20/18 19:22: Sodium 142, Potassium 3.6, BUN 17, Creatinine 1.04, Glucose 133 H, Magnesium 2.9 H Assessment & Plan - Problems (Diagnosis) (1) Asthma with severe exacerbation Current Visit: Yes Status: Acute - Plan -nebs, steroids, and antibiotics -O2 per protocol/BiPAP support. -peak flow measurements -outpatient spirometry or pulmonary function testing -repeat chest x-ray -pulmonary consultation Discharge Plan: Home Plan to discharge in: 48 Hours - Advance Directives Does patient have a Living Will: No Does patient have a Durable POA for Healthcare: No - Code Status/Comfort Care Code Status Assessed: Yes Code Status: Full Code Critical Care: No Time Spent Managing PTS Care (In Minutes): 50
[2018-12-21] MEDS ORDERED: ENOXAPARIN 40 MG/0.4 ML SQ SCH (09:00)
[2018-12-21] MEDS: POTASS/SODIUM PHOSPHATE 1 PKT POWD.PACK PO SCH ×3 (09:36→12:43)
--- NOTE | 2018-12-21 11:04 | P.CNS ---
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 He uses Symbicort on a p.r.n. basis confirmed history of asthma doing much better denies any fever chills cough sputum or hemoptysis Allergies No Known Drug Allergies Allergy (Verified 12/21/18 01:21) Unknown Home Medications: Albuterol Sulfate [Albuterol Sulfate Hfa] 1 inh IN SEECOM PRN 12/21/18 Budesonide/Formoterol Fumarate [Symbicort 80-4.5 Mcg Inhaler] 1 puff IN DAILY - Past Medical/Surgical History Diabetic: No -: asthma - Family History Mother History Unknown: Yes Father History Unknown: Yes - Social History Alcohol use: No CD- Drugs: No Caffeine use: No Place of Residence: Home Review of Systems 10-point ROS is otherwise unremarkable Physical Examination Temp Pulse Resp BP Pulse Ox 98.2 F 89 18 127/59 L 97 12/21/18 08:36 12/21/18 08:36 12/21/18 08:36 12/21/18 08:36 12/21/18 08:36 General: Alert, In no apparent distress, Oriented x3 Respiratory: Clear to auscultation bilaterally Cardiovascular: No edema, Regular rate/rhythm, Normal S1 S2 Laboratory Data (last 24 hrs) 12/20/18 19:22: WBC 7.6, Hgb 13.7, Hct 40.6, Plt Count 211 12/20/18 19:22: Sodium 142, Potassium 3.6, BUN 17, Creatinine 1.04, Glucose 133 H, Magnesium 2.9 H - Problems (1) Asthma with severe exacerbation Current Visit: Yes Status: Acute Plan: Patient is 43 years of age with a history of asthma noncompliance recurrent exacerbations admitted with respiratory distress chest x-ray shows hyperinflated lung vergara is currently in no respiratory distress oxygenation vital signs all satisfactory patient has a history of bullectomy with I suspect VATS pleurodesis a long time ago he can be discharged on Breo 200 mcg 1 puff daily in addition to prednisone 10 twice a day for 7-10 days the use of short- acting bronchodilator p.r.n. basis
--- NOTE | 2018-12-21 14:24 | P.SSS ---
Patient History Date of Service: 12/21/18 Reason for admission: asthma exacerbation History of Present Illness: Patient is a 43-year-old gentleman who came into the hospital with shortness of breath. Patient works with [employer], and he got short of breath while he was at work. He gave himself multiple breathing treatments with no success. EMS paramedics gave him IV Solu-Medrol, IV epi, IV magnesium, and 3 nebs back to back. He was brought into the emergency room and he was still very short of breath so he was placed on BiPAP. Gradually his symptoms started improving. He has had 3 hospitalizations this year with his asthma exacerbation. He normally goes through at least 1 inhaler every month and he uses Symbicort but is not that compliant with this. He is clinically improving so he will go to the general medical floor. We will continue with neb treatments along with IV steroids and we will check a peak flow in a.m.. 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 Allergies No Known Drug Allergies Allergy (Verified 12/21/18 01:21) Unknown Home Medications: Albuterol Sulfate [Albuterol Sulfate Hfa] 1 inh IN SEECOM PRN 12/21/18 Fluticasone/Vilanterol [Breo Ellipta 200-25 Mcg INH] 1 each IH DAILY #1 blst.w.dev 12/21/18 predniSONE [Deltasone*] 10 mg PO BID #20 tab 12/21/18 - Past Medical/Surgical History Has patient received pneumonia vaccine in the past: Yes Diabetic: No -: asthma - Family History Mother History Unknown: Yes Father History Unknown: Yes - Social History Smoking Status: Never smoker Alcohol use: No CD- Drugs: No Caffeine use: No Place of Residence: Home Review of Systems 10-point ROS is otherwise unremarkable Physical Examination - Vital Signs Temperature: 97.9 F Blood Pressure: 116/65 Pulse: 86 Respirations: 18 Pulse Ox (%): 98 - Physical Exam General: Alert, In no apparent distress HEENT: Atraumatic, PERRLA, Mucous membr. moist/pink, EOMI, Sclerae nonicteric Neck: Supple, 2+ carotid pulse no bruit, No LAD, Without JVD or thyroid abnormality Respiratory: Clear to auscultation bilaterally, Normal air movement Cardiovascular: Regular rate/rhythm, Normal S1 S2 Gastrointestinal: Normal bowel sounds, No tenderness Musculoskeletal: No tenderness Integumentary: No rashes Neurological: Normal gait, Normal speech, Normal strength at 5/5 x4 extr, Normal tone, Normal affect Lymphatics: No axilla or inguinal lymphadenopathy - Studies Laboratory Data (last 24 hrs) 12/20/18 19:22: WBC 7.6, Hgb 13.7, Hct 40.6, Plt Count 211 12/20/18 19:22: Sodium 142, Potassium 3.6, BUN 17, Creatinine 1.04, Glucose 133 H, Magnesium 2.9 H - Diagnosis (Problem(s)) (1) Asthma with severe exacerbation Status: Resolved Treatment Summary: The patient was initially admitted to the hospital for asthma exacerbation was initially placed on BiPAP and was successfully weaned off. Was started on nebulizing treatment here in the hospital and did well overall. Pulmonology was consulted who recommended the patient can now be discharged home since acute exacerbation has resolved. Patient was advised to start taking Symbicort and start on Breo along with Pro air p.r.n. patient did well overall while here in the hospital and thus was discharged home under stable condition - Disposition Disposition: ROUTINE DISCHARGE Condition: FAIR Patient Discharge Instructions: Please f.u with PCP and Pulmonology in 1 to 2 week post discharge. New medication. Breo. Patient to stop the Symbicort please fax prescriptions to the pharmacy Diet: Regular Activity: Ad yajaira
== END 2018-12-21 13:30 | disposition home or self-care (01) ==
LOC: ER 18:16 → ERHOLD 21:16 → 4TH 22:23
PROVIDERS: ADMIT Hospitalist; ATTEND Hospitalist
DX: J45.901 Unspecified asthma with (acute) exacerbation (principal)
CPT/HCPCS: 36415; 71045; 80048; 80053; 83735; 83880; 84100; 84484; 85025; 93005; 94010; 94640; 94660; 94760; 99291; 99292; G0378; J0456; J1650; J2920; J7030